=== PATIENT | male | born 1985 | race Hispanic/Latino ===

== ENCOUNTER 2020-10-14 11:20 | Emergency (ER) | payer BC ==
[~2020-10-14 11:20] MED LIST: ASPI-1012 PO; CLIN-141 PO; HYDR-2132 PO
[2020-10-14] MEDS ORDERED: HYDROCODONE/ACETAMINOPHEN 5/325 MG TAB ONE (12:50)
== END 2020-10-14 17:11 | disposition home or self-care (01) ==
LOC: EDH 11:20
DX: S20.219A Contusion of unspecified front wall of thorax, initial encounter (principal); F07.81 Postconcussional syndrome; S00.01XA Abrasion of scalp, initial encounter; M54.5 Low back pain; M54.2 Cervicalgia; M25.532 Pain in left wrist; M25.531 Pain in right wrist; M25.571 Pain in right ankle and joints of right foot; V49.49XA Driver injured in collision with other motor vehicles in traffic accident, initial encounter; Y93.89 Activity, other specified; Y92.89 Other specified places as the place of occurrence of the external cause; Y99.8 Other external cause status
CPT/HCPCS: 70450; 71250; 72100; 72125; 73110; 73600; 93005